=== PATIENT | male | born 1950 | race Caucasian/White ===

== ENCOUNTER 2018-04-05 10:37 | Emergency (ER) | payer OTHER, MEDICARE, SELFPAY ==
[2018-04-05 10:44] VITALS: BP 140/90; PULSE 85; RESP 16; TEMP 36.4; O2SAT 95
--- NOTE | 2018-04-05 11:05 | ED.GENADUL ---
Disposition Clinical Impression: Knee pain, right Disposition: HOME Condition: Stable Instructions: Knee Pain (ED) Additional Instructions: Rest, ice, elevate right knee as much as possible. Wear your Ja wrap as much as possible. You should receive a call from care management regarding follow-up with occupational medicine and/or orthopedics regarding when to return to work with modified duty. Return to the emergency department any worsening or new concerning symptoms. Forms: Work Release Medical Decision Making - Radiology Data Radiology results: report reviewed, image reviewed Right knee x-ray: 1. Soft round ossific fragment adjacent to the intercondylar eminence may represent old avulsion fracture of unknown age. 2. No significant suprapatellar joint effusion. 3. Patellar ligament is thickened. This may indicate injury. - Medical Decision Making 68-year-old male who presents with right medial knee pain for the past 6 days. Patient walks frequently here at work for his job. States a few days ago he was walking and turned to the right and twisted his right medial knee. No obvious ligamentous instability or evidence of trauma to right knee. Neurovascularly intact. Patient declines pain medication. We will send for a right knee x-ray. 1400 --right knee x-ray notes a small ossific fragment which may represent an avulsion fracture of unknown age. His findings are discussed with orthopedics Dr. Turk and notified that patient is able to fully extend his leg and there is no effusion. Recommends rest, ice, elevate and Ja wrap. No indication for knee immobilizer. Recommend patient follow-up with orthopedics as needed if pain persists. Patient states he cannot ambulate on his right leg due to his knee pain. He states he walks up to 5 miles while at work and his next day of work is tomorrow. We will send home with a work note to return in 2 days. Patient states he still will not be able to ambulate at that time and they will not give him any other modified duty. Will give a work note to return with modified light duty Friday. Will place patient on care management list to arrange for follow-up with occupational medicine and/or orthopedics for reevaluation to assess when patient can return to work. History of Present Illness - General Chief complaint: Orthopedic Stated complaint: RT KNEE PAIN Time Seen by Provider: 04/05/18 10:52 Source: patient Mode of arrival: ambulatory Limitations: no limitations - History of Present Illness Initial comments: Patient is a 68-year-old male presents with right knee pain for the past several days. 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 Patient states he was walking the other day and he turned the corner and thinks he may have twisted his right knee. Patient is complaining of pain in the right medial knee. Patient is able to ambulate but with pain. She denies fall onto knee. - Related Data Calcium Citrate/Vitamin D3 [Calcium Citrate - Vit D Tablet] 600 each PO BID 12/20/13 Multivitamin [Children's Chewable Vitamin] 1 each PO BID 12/20/13 Nitroglycerin [Nitrostat] 1 tab SL PRN #2 bottle 09/17/16 Aspirin [Aspir 81] 81 mg PO DAILY tab-cap 09/23/17 Candesartan [Atacand] 32 mg PO DAILY #90 tab-cap 09/23/17 Celecoxib 200 mg PO DAILY PRN #90 tab-cap 09/23/17 Chlorphen/Phenyleph/Dm/Aspirin [Vivian-Donna Plus C-C Tab Eff] 1 each PO Q6H PRN PRN 09/23/17 Cholecalciferol (Vitamin D3) [Vitamin D3] 3,000 unit PO DAILY 09/23/17 Furosemide [Lasix] 20 mg PO DAILY #90 tab-cap 09/23/17 Insulin Glargine [Lantus Solostar] 70 unit SQ QPM #90 pen 09/23/17 Ketoconazole 1 applic TP Q72H #2 bottle 09/23/17 Levothyroxine [Levothroid] 2 tab PO DAILY #180 tab-cap 09/23/17 [place]-3 Acid Ethyl Esters [Lovaza] 1 cap PO DAILY #90 tab-cap 09/23/17 Omeprazole 20 mg PO DAILY #90 tab-cap 09/23/17 Tadalafil [Cialis] 20 mg PO daily prn #30 tab 09/23/17 Blood Sugar Diagnostic, Drum [Accu-Chek Compact Plus Strips] 1 each MC QID #300 strip 01/13/18 Lancets [Accu-Chek Fastclix] 1 each MC QID #300 each 01/13/18 Glimepiride 4 mg PO DAILY #90 tab-cap 03/17/18 Metformin HCl [Glucophage Xr] 2 tab PO BID #360 tab 03/17/18 Dapagliflozin Propanediol [Farxiga] 10 mg PO DAILY #30 tab-cap 03/25/18 Testosterone [Androgel] 60.75 mg TD DAILY #2 bottle 03/25/18 Varicella-Zoster Ge/As01b/Pf [Shingrix Vial Kit] 50 mcg IM ONCE #1 kit 03/25/18 Allergies Allergy/AdvReac Type Severity Reaction Status Date / Time Pcnvfmo-Ori-Eer Reductase Allergy Severe Swelling/Ed Unverified 04/05/18 10:48 Inhibitor alton ciprofloxacin [From Cipro] AdvReac Unknown NUMBNESS; Unverified 04/05/18 10:48 TINGLING exenatide AdvReac Unknown Unverified 04/05/18 10:48 Review of Systems Constitutional: denies: chills, fever Eyes: denies: eye pain ENT: denies: ear pain, dental pain Respiratory: denies: cough, shortness of breath Cardiovascular: denies: chest pain, dyspnea on exertion Gastrointestinal: denies: abdominal pain, nausea, vomiting Genitourinary: denies: urgency, dysuria, frequency Musculoskeletal: other (R knee pain). denies: back pain Skin: denies: rash, lesions Past Medical History - Past Medical History Medical history: CAD, diabetes, hyperlipidemia, hypertension BPH, Obesity, Peripheral vascular disease Surgical history: angioplasty/stent, vascetomy, other (Gastric bypass, Vasectomy, Thyroidectomy, Shoulder surgery) Psychiatric history: anxiety - Social History Smoking status: never smoker Alcohol use: none Drug use: none General Exam - General Limitations: no limitations General appearance: alert, in no apparent distress - Eye Eye exam: Present: EOMI - Respiratory Respiratory exam: Absent: respiratory distress - Cardiovascular Cardiovascular Exam: Present: regular rate - Extremities Exam Extremities exam: Present: other (Pain in right medial knee with range of motion. No tenderness palpation of right knee, no edema, erythema, ecchymosis, induration or fluctuance or abrasion or laceration. No pain with valgus or varus stress. Negative anterior posterior drawer. Right DP/PT pulse intact.) - Neurological Exam Neurological exam: Present: alert, oriented X3 - Psychiatric Psychiatric exam: Present: normal affect - Skin Skin exam: Present: warm, dry, intact Course Vital Signs - 24 hr 04/05/18 10:44 Temperature 97.5 F L Pulse 85 Respiratory 16 Rate Blood Pressure 140/90 Pulse Oximetry 95
--- NOTE | 2018-04-05 11:06 | DI.REPORT_ITS ---
SYMPTOM/DIAGNOSIS: S/P TWISTING INJURY WHILE WALKING, PKAIN MEDIAL KNEE, R/O EFFUSION, FX RIGHT KNEE: There are no prior comparison exams. The lateral view is suboptimally positioned. There is mild periarticular spurring. There is an osteophyte vs old avulsion fracture at the lateral tibial plateau. There is some irregularity at the articular aspect of the patella presumably degenerative change. IMPRESSION: Somewhat limited exam. No acute abnormality.
--- NOTE | 2018-04-05 13:34 | DI.VRAD_ITS ---
EXAM: XR Right Knee, 3 Views EXAM DATE/TIME: 04/05/2018 11:07 AM CLINICAL HISTORY: 68 years old, male; Pain; Knee; Right; Patient HX: S/P twisting injury while walking, pain medial knee; Additional info: R/O effusion/fx TECHNIQUE: XR Right knee 3 views. COMPARISON: No relevant prior studies available. FINDINGS: Bones/joints: Mild osteophyte formation in all 3 compartments of the knee. Small round ossific fragment adjacent to the intercondylar eminence may represent avulsion fracture of unknown age. No significant suprapatellar joint effusion. The patellar ligament is thickened. This may indicate injury. Soft tissues: Normal. IMPRESSION: 1. Small round ossific fragment adjacent to the intercondylar eminence may represent avulsion fracture of unknown age. 2. No significant suprapatellar joint effusion. 3. The patellar ligament is thickened. This may indicate injury. Dictated and Authenticated by: Edward Beard MD. Ordering:ALFREDO CHRISTINE MD
[2018-04-05 14:42] VITALS: BP 142/90; PULSE 73; RESP 18; TEMP 36.1; O2SAT 93
--- NOTE | 2018-04-06 08:26 | PDOC.ERCMPRO ---
Care Management Progress Note 04/06-Dr. Leonard requested assistance with an occ med f/u in two days for avulsion fracture, unknown age. Called [facility] and they scheduled appt for , 04/09 at 230. Called Aric and he states he can make that appt. Notified Bee in access that patient's home phone number is not a good number and needs to be removed from chart for which she did.
== END 2018-04-05 14:40 | disposition home or self-care (01) ==
PROVIDERS: Emergency Provider Physician Assistant; PCP Internal Medicine
DX: M25.561 Pain in right knee (principal); X50.9XXA Other and unspecified overexertion or strenuous movements or postures, initial encounter; E11.9 Type 2 diabetes mellitus without complications; Z79.4 Long term (current) use of insulin; I10 Essential (primary) hypertension
CPT/HCPCS: 73562; 99283

== ENCOUNTER → 2018-04-09 14:40 | Outpatient (REF) | payer SELFPAY | LOC: OM 14:40 | PROVIDERS: PCP Internal Medicine; Visit Provider Nurse Practitioner Family | DX: Z02.79 Encounter for issue of other medical certificate (principal) ==

== ENCOUNTER → 2018-04-16 09:45 | Outpatient (CLI) | payer OTHER, MEDICARE, SELFPAY | PROVIDERS: PCP Internal Medicine; Visit Provider Orthopaedic Surgery | DX: M25.561 Pain in right knee (principal); M23.8X1 Other internal derangements of right knee; I10 Essential (primary) hypertension; E11.9 Type 2 diabetes mellitus without complications; Z79.84 Long term (current) use of oral hypoglycemic drugs | CPT/HCPCS: 20610; 99214; J1040 ==

== ENCOUNTER → 2018-04-16 12:20 | Outpatient (REF) | payer OTHER, MEDICARE, SELFPAY ==
[2018-04-16 13:09] LABS: Source R KNEE
[2018-04-16 14:04] LABS: Clarity CLEAR
[2018-04-16 14:12] LABS: Nucleated Cells 1300 /MM3 (0-0); Polynuclear Cells 12 % (0-0)
[2018-04-16 14:13] LABS: Mononuclear Cells 88 % (0-0)
== END ==
LOC: LBN 12:20
PROVIDERS: PCP Internal Medicine; Visit Provider Orthopaedic Surgery
DX: M25.461 Effusion, right knee (principal)
CPT/HCPCS: 89051; 89060

== ENCOUNTER → 2018-04-22 09:45 | Outpatient (CLI) | payer OTHER, MEDICARE, SELFPAY | PROVIDERS: PCP Internal Medicine; Visit Provider Orthopaedic Surgery | DX: M75.81 Other shoulder lesions, right shoulder (principal); M25.561 Pain in right knee; M23.91 Unspecified internal derangement of right knee | CPT/HCPCS: 20610; 99213; J1040 ==

== ENCOUNTER 2018-08-14 10:52 | Outpatient (CLI) | payer OTHER, MEDICARE, SELFPAY ==
[2018-08-14 11:38] LABS: HCT 54.5 % (40.0-50.0); HGB 17.9 g/dL (13.5-17.5); Mean Corp. HGB Concentration 32.8 g/dL (32.0-36.0); Mean Corpuscular Hemoglobin 31.1 pg (27.0-33.0); Mean Corpuscular Volume 94.8 fL (80-95); Mean Platelet Volume 10.6 fL (8.0-11.0); Platelet Count 176 x1000/uL (130-400); RBC 5.75 m/cumm (4.50-6.00); RBC Distribution Width 13.8 % (11.8-14.1); White Blood Cell Count 6.53 k/cumm (4.4-10.8)
[2018-08-14 12:06] LABS: COMMENT (LAB VIEW ONLY) 105.56 mg/dL
[2018-08-14 12:40] LABS: Iron 59 ug/dL (50-175); Total Iron Binding Capacity 281 ug/dL (250-450); Transferrin Sat 21 % (20-55)
[2018-08-14 13:08] LABS: Anion Gap 8.2 mmol/L (3-11); BUN 22 mg/dL (7-18); CO2 29.8 mmol/L (21.0-32.0); CREATININE 1.09 mg/dL (0.70-1.30); Calcium 9.4 mg/dL (8.5-10.1); Chloride 104 mmol/L (98-107); Cholesterol 183 mg/dL (50-200); Ferritin 49 ng/mL (8-388); Glucose 156 mg/dL (70-100); HDL Cholesterol 37 mg/dL (40-60); LDL CHOLESTEROL 122 mg/dL (<100); Potassium 4.9 mmol/L (3.5-5.1); Sodium 142 mmol/L (136-145); TSH 4.64 uIU/mL (0.358-3.74); Triglyceride 204 mg/dL (30-150); Vitamin B12 468 pg/mL (193-986)
[2018-08-17 06:22] LABS: Vitamin D 25 Total 62.6 ng/ml (30-100)
[2018-08-17 11:03] LABS: Transferrin 240 mg/dL (201-352)
== END 2018-08-14 11:12 ==
PROVIDERS: PCP Internal Medicine; Visit Provider Psychiatry & Neurology Neurology
DX: R73.01 Impaired fasting glucose (principal); E55.9 Vitamin D deficiency, unspecified; E11.49 Type 2 diabetes mellitus with other diabetic neurological complication; E11.29 Type 2 diabetes mellitus with other diabetic kidney complication; R80.9 Proteinuria, unspecified; E03.9 Hypothyroidism, unspecified; E23.0 Hypopituitarism; I10 Essential (primary) hypertension; I25.10 Atherosclerotic heart disease of native coronary artery without angina pectoris; Z98.84 Bariatric surgery status
CPT/HCPCS: 36415; 80048; 80061; 82306; 83721; 85027; 82043; 82570; 82607; 82728; 83540; 83550; 84443; 84466

== ENCOUNTER 2018-10-27 11:26 | Outpatient (CLI) | payer MEDICARE, OTHER, SELFPAY ==
[2018-10-27 12:16] LABS: HGB 18.3 g/dL (13.5-17.5); Mean Corp. HGB Concentration 33.3 g/dL (32.0-36.0); Mean Corpuscular Hemoglobin 30.8 pg (27.0-33.0); Mean Corpuscular Volume 92.4 fL (80-95); Mean Platelet Volume 10.9 fL (8.0-11.0); Platelet Count 184 x1000/uL (130-400); RBC 5.95 m/cumm (4.50-6.00); RBC Distribution Width 13.8 % (11.8-14.1); White Blood Cell Count 6.97 k/cumm (4.4-10.8)
== END 2018-10-27 11:46 ==
PROVIDERS: PCP Internal Medicine; Visit Provider Internal Medicine
DX: D58.2 Other hemoglobinopathies (principal)
CPT/HCPCS: 85027

== ENCOUNTER 2018-11-06 11:07 | Outpatient (CLI) | payer MEDICARE, OTHER, SELFPAY ==
[2018-11-10 12:38] LABS: Testosterone, Total 334 ng/dL (240-950)
== END 2018-11-06 11:27 ==
PROVIDERS: PCP Internal Medicine; Visit Provider Internal Medicine
DX: E29.1 Testicular hypofunction (principal)
CPT/HCPCS: 84403

== ENCOUNTER 2019-10-27 11:25 | Outpatient (CLI) | payer MEDICARE, OTHER, SELFPAY ==
[2019-10-27 11:49] LABS: HCT 46.3 % (40.0-50.0); HGB 15.8 g/dL (13.5-17.5); Mean Corp. HGB Concentration 34.1 g/dL (32.0-36.0); Mean Corpuscular Hemoglobin 31.6 pg (27.0-33.0); Mean Corpuscular Volume 92.6 fL (80-95); Mean Platelet Volume 10.3 fL (8.0-11.0); Platelet Count 221 x1000/uL (130-400); White Blood Cell Count 6.73 k/cumm (4.4-10.8)
[2019-10-27 12:47] LABS: Iron 102 ug/dL (65-175); Total Iron Binding Capacity 262 ug/dL (250-450); Transferrin Sat 39 % (20-55)
[2019-10-27 13:12] LABS: Anion Gap 8.6 mmol/L (3-11); BUN 12 mg/dL (7-18); CO2 27.4 mmol/L (21.0-32.0); CREATININE 0.84 mg/dL (0.70-1.30); Calcium 8.4 mg/dL (8.5-10.1); Calculated LDL 96 mg/dL (<100); Chloride 106 mmol/L (98-107); Cholesterol 164 mg/dL (<200); Ferritin 118 ng/mL (26-388); Glucose 107 mg/dL (74-106); HDL Cholesterol 47 mg/dL (40-60); Potassium 4.8 mmol/L (3.5-5.1); Sodium 142 mmol/L (136-145); TSH (W/Ref FT4) 1.14 uIU/mL (0.36-3.74); Triglyceride 105 mg/dL (<150); Vitamin B12 464 pg/mL (193-986)
[2019-10-28 05:28] LABS: Vitamin D 25 Total 53.8 ng/ml (30-100)
[2019-10-28 10:07] LABS: Transferrin 184 mg/dL (201-352)
[2019-10-30 08:20] LABS: Testosterone, Total 238 ng/dL (240-950)
== END 2019-10-27 11:45 ==
PROVIDERS: PCP Internal Medicine; Visit Provider Internal Medicine
DX: E11.49 Type 2 diabetes mellitus with other diabetic neurological complication (principal); I10 Essential (primary) hypertension; E78.00 Pure hypercholesterolemia, unspecified; I25.10 Atherosclerotic heart disease of native coronary artery without angina pectoris; E25.0 Congenital adrenogenital disorders associated with enzyme deficiency; E55.9 Vitamin D deficiency, unspecified; Z98.84 Bariatric surgery status
CPT/HCPCS: 36415; 80048; 80061; 82306; 84403; 85027; 82607; 82728; 83540; 83550; 84443; 84466

== ENCOUNTER 2020-11-06 03:16 | Outpatient (CLI) | payer MEDICARE, OTHER, SELFPAY ==
[2020-11-06 08:04] LABS: HCT 46.6 % (40.0-50.0); HGB 15.8 g/dL (13.5-17.5); MCH 31.5 pg (27.0-33.0); MCHC 33.9 % (32.0-36.0); MPV 11.2 fL (8.0-11.0); Platelet Count 201 10^3/uL (130-400); RBC 5.01 10^6/uL (4.36-5.78); RDW 12.4 % (11.8-14.1); RDW-SD 42.4 fL; WBC 6.43 10^3/uL (4.4-10.8)
[2020-11-06 09:39] LABS: COMMENT (LAB VIEW ONLY) 204.67 mg/dL
[2020-11-06 09:40] LABS: Microalb ug/mg Crea 105.7 ug/mg Cr
[2020-11-06 09:51] LABS: Vitamin D 25 Total 39.3 ng/ml (30-100)
[2020-11-06 09:53] LABS: ALT 49 U/L (16-63); AST 21 U/L (15-37); Albumin 3.8 g/dL (3.4-5.0); Alkaline Phosphatase 78 U/L (46-116); Anion Gap 9.4 mmol/L (3-11); BUN 13 mg/dL (7-18); Bilirubin, Total 0.6 mg/dL (0.2-1.0); CO2 28.6 mmol/L (21.0-32.0); CREATININE 0.9 mg/dL (0.70-1.30); Calcium 9.3 mg/dL (8.5-10.1); Chloride 103 mmol/L (98-107); Glucose 248 mg/dL (74-106); Potassium 4.4 mmol/L (3.5-5.1); Sodium 141 mmol/L (136-145); TSH (W/Ref FT4) 2.18 uIU/mL (0.36-3.74); Total Protein 7.2 g/dL (6.4-8.2); Vitamin B12 520 pg/mL (193-986)
[2020-11-08 17:41] LABS: Testosterone, Total 281 ng/dL (240-950)
== END 2020-11-06 03:17 | disposition home or self-care (01) ==
LOC: LBO 03:17
PROVIDERS: PCP Internal Medicine; Visit Provider Internal Medicine
DX: D75.1 Secondary polycythemia (principal); E03.9 Hypothyroidism, unspecified; E11.29 Type 2 diabetes mellitus with other diabetic kidney complication; R80.9 Proteinuria, unspecified; E55.9 Vitamin D deficiency, unspecified; I10 Essential (primary) hypertension; I25.10 Atherosclerotic heart disease of native coronary artery without angina pectoris; Z98.84 Bariatric surgery status
CPT/HCPCS: 36415; 80053; 82306; 84403; 85027; 82043; 82570; 82607; 84443

== ENCOUNTER 2021-08-03 01:23 | Outpatient (CLI) | payer MEDICARE, OTHER, SELFPAY ==
[2021-08-03 09:35] LABS: HCT 45.6 % (40.0-50.0); HGB 14.8 g/dL (13.5-17.5); MCHC 32.5 % (32.0-36.0); MCV 95.4 fL (80-95); MPV 10.5 fL (8.0-11.0); Platelet Count 205 10^3/uL (130-400); RBC 4.78 10^6/uL (4.36-5.78); RDW 12.4 % (11.8-14.1); RDW-SD 44.1 fL; WBC 5.96 10^3/uL (4.4-10.8)
[2021-08-03 10:24] LABS: COMMENT (LAB VIEW ONLY) 306.36 mg/dL
[2021-08-03 10:25] LABS: Microalb ug/mg Crea 75.2 ug/mg Cr
[2021-08-03 11:18] LABS: ALT 39 U/L (16-63); AST 19 U/L (15-37); Albumin 3.6 g/dL (3.4-5.0); Alkaline Phosphatase 70 U/L (46-116); Anion Gap 7.7 mmol/L (3-11); BUN 13 mg/dL (7-18); Bilirubin, Total 0.6 mg/dL (0.2-1.0); CO2 30.3 mmol/L (21.0-32.0); Calcium 8.9 mg/dL (8.5-10.1); Calculated LDL 127 mg/dL (<100); Chloride 103 mmol/L (98-107); Cholesterol 203 mg/dL (<200); Glucose 199 mg/dL (74-106); HDL Cholesterol 40 mg/dL (40-60); Potassium 4.5 mmol/L (3.5-5.1); Sodium 141 mmol/L (136-145); TSH (W/Ref FT4) 6.78 uIU/mL (0.36-3.74); Total Protein 6.9 g/dL (6.4-8.2); Triglyceride 182 mg/dL (<150); Vitamin B12 322 pg/mL (193-986)
[2021-08-03 16:18] LABS: FREE T4 1.06 ng/dL (0.76-1.46)
[2021-08-12 09:26] LABS: Testosterone, Total 277 ng/dL (240-950)
== END 2021-08-03 01:24 | disposition home or self-care (01) ==
LOC: LBO 01:23
PROVIDERS: PCP Internal Medicine; Visit Provider Internal Medicine
DX: D75.1 Secondary polycythemia (principal); E11.29 Type 2 diabetes mellitus with other diabetic kidney complication; E11.49 Type 2 diabetes mellitus with other diabetic neurological complication; E23.0 Hypopituitarism; E55.9 Vitamin D deficiency, unspecified; I10 Essential (primary) hypertension; I25.10 Atherosclerotic heart disease of native coronary artery without angina pectoris; R80.9 Proteinuria, unspecified; Z98.84 Bariatric surgery status; E78.00 Pure hypercholesterolemia, unspecified; E03.9 Hypothyroidism, unspecified; J45.909 Unspecified asthma, uncomplicated
CPT/HCPCS: 36415; 80053; 80061; 82306; 84403; 85027; 82043; 82570; 82607; 84439; 84443

== ENCOUNTER 2022-02-01 09:47 | Emergency (ER) | payer MEDICARE, OTHER, SELFPAY ==
[2022-02-01 09:58] VITALS: BP 138/70; PULSE 102; RESP 18; TEMP 36.5; O2SAT 94
--- NOTE | 2022-02-01 10:22 | W.ED.GENAD ---
Discharge Plan Disposition Patient Disposition: HOME Condition: Improving Discharge Details Clinical Impression: Septic bursitis Primary Care Provider: Leyda Carvajal ED Provider: Reginald Diaz Home Meds and New Rx's Prescriptions: New clindamycin HCl 300 mg capsule 300 mg PO Q6H 10 Days Qty: 40 0RF Adult 50 Plus Probiotic 4 billion cell capsule 4,000 mmu cells PO DAILY Qty: 10 0RF Rx Instructions: administer with a meal No Action tadalafil [Cialis] 20 mg tablet 20 mg PO DAILY PRN (Reason: erectile dysfunction) Qty: 30 5RF Rx Instructions: administer approximately 30min before sexual activity; do not use more than 1 dose per 24hrs sitagliptin 25 mg tablet 25 mg PO DAILY Qty: 90 0RF Label Comments: Pt stopped,bothered him,unsure if Dr. Carvajal aware yet 02/01/22 (DME) lancets [Accu-Chek Fastclix Lancet Drum] Misc See Rx Instructions .ROUTE .MEDSUPPLY Qty: 100 4RF Rx Instructions: Dx E11.9, goal A1c < 8. (DME) Accu-Chek Guide test strips Strip See Rx Instructions .ROUTE .MEDSUPPLY Qty: 200 3RF Rx Instructions: Dx E11.9, goal A1c < 8 test BID Vivian-Linden Plus C/C(PE,DM) 1 EACH tablet, effervescent 1 ea PO Q6H PRN PRN Rx Instructions: uses more often in winter for sx of cold/flu ketoconazole 120 ML shampoo 1 applic Topical Q72H Qty: 2 3RF Label Comments: Pt uses 1-2 times a week 02/01/22 celecoxib 200 mg capsule 200 mg PO DAILY PRN (Reason: pain) Qty: 90 3RF Label Comments: Pt takes 2-3 times a week 02/01/22 furosemide [Lasix] 20 mg tablet 20 mg PO DAILY Qty: 90 3RF Hold Instructions: Home Medication placed on hold at Doctor's office Label Comments: Pt states doesn't take 02/01/22 (DME) lancets Misc 1 ea Miscellaneous QID Qty: 300 1RF Rx Instructions: Test TID. Dx E11.49, goal HGB AIC LESS THAN 7 nitroglycerin [Nitrostat] 0.4 mg tablet, sublingual 0.4 mg Sublingual PRN Qty: 30 1RF Rx Instructions: Dispense one small bottle omeprazole 20 mg capsule,delayed release(DR/EC) 20 mg PO DAILY Qty: 90 3RF Label Comments: Pt has but isn't taking 02/01/22 (DME) pen needle, diabetic [BD Ultra-Fine Short Pen Needle] 31 gauge x 5/16 needle See Rx Instructions .ROUTE .MEDSUPPLY Qty: 200 3RF Rx Instructions: For E11.9 to maintain A1C< 7, BID injections Children's Chewable Vitamin 1 EACH tablet,chewable 2 ea PO BID calcium citrate-vitamin D3 1 EACH tablet 600 ea PO BID aspirin 81 mg Tablet,Delayed Release (Dr/Ec) 81 mg PO QPM melatonin 10 mg Tablet 10 mg PO HS Rx Instructions: Take when going to bed to add to previous 10mg dose for total of 20mg. melatonin 10 mg Tablet 10 mg PO QPM Rx Instructions: Take at 7pm, followed by second 10mg dose at bedtime for a total of 20mg glimepiride 4 mg tablet 4 mg PO BID levothyroxine 112 mcg tablet 224 mcg PO DAILY Rx Instructions: 2 PO DAILY; total 224 mcg daily olmesartan [Benicar] 40 mg tablet 40 mg PO QPM insulin glargine [Lantus Solostar U-100 Insulin] 100 unit/mL (3 mL) insulin pen 80 unit subcut QPM Rx Instructions: 80 units qpm based on blood sugar Discharge Instructions Instructions: Elbow Bursitis (ED) Additional Instructions: Please follow-up with Dr. Sandoval as scheduled. Please return to the emergency department if you develop worsening pain swelling redness fevers chills or other abnormal symptoms. Please take your medications as prescribed. Medical Decision Making 71-year-old male history of diabetes presents with weeks of right elbow pain redness swelling warmth worsening over the past several days, denies fevers or chills, is mildly tachycardic on arrival, full range of motion of affected elbow, palpable fluid collection at olecranon bursa, no crepitus deformity full of vesicles or signs of trauma, neurovascularly intact, concern for septic bursitis versus gouty bursitis versus Lyme bursitis versus less likely septic joint given range of motion intact chronicity of symptoms and lack of systemic signs of illness, will perform bedside tap of bursa, will send fluid for analysis, will obtain blood cultures basic labs inflammatory markers, after tap will cover empirically with clindamycin. Will have patient follow-up as scheduled with orthopedic team. 15: 32 aspiration of bursal sac for therapeutic and diagnostic results performed, evidence of over 20,000 WBCs with a predominance of polymorphonucleocytes, also gram-positive cocci consistent with septic bursitis. Patient is full range of motion of elbow low suspicion for concomitant septic joint. Have started patient on clindamycin. Discussed case with orthopedic surgeon Dr. Sandoval who recommends adding IM ceftriaxone and will follow up with patient as an outpatient for repeat examination and further treatment as needed. Patient be discharged home on p.o. clindamycin. Patient given home care instructions and strict return precautions. HPI General Date/Time Provider Initiated Documentation: 02/01/22 10:05. HPI Narrative: 71-year-old male history of diabetes, presents with several weeks of right elbow swelling pain and redness, worsening pain and warmth over the past several days. Endorses that he has an appointment with orthopedic service to have it drained, attempted to have it drained as an outpatient at outside clinic however no one would drain it for him. Related Data Home Medications Medication Instructions Recorded Confirmed calcium citrate 315 mg-vitamin D3 600 ea PO BID 12/20/13 02/01/22 5 mcg (200 unit) tablet pediatric multivitamin (Children's 2 ea PO BID 12/20/13 02/01/22 Chewable Vitamin) [id number] 1 ea PO Q6H PRN PRN 09/23/17 02/01/22 2 mg-7.8 mg-10 mg-325 mg effervs tab (Vivian-Linden Plus C/C(PE,DM)) ketoconazole 2 % shampoo 1 applic topical Q72H ##2 09/23/17 02/01/22 blood sugar diagnostic (Accu-Chek #200 units 08/14/21 02/01/22 Guide test strips) lancets (Accu-Chek Fastclix Lancet #100 ea 08/14/21 02/01/22 Drum) celecoxib 200 mg capsule 200 mg PO DAILY PRN pain #90 10/31/21 02/01/22 tab-caps furosemide 20 mg tablet (Lasix) 20 mg PO DAILY #90 tab-caps 10/31/21 11/14/21 lancets #300 ea 10/31/21 02/01/22 nitroglycerin 0.4 mg sublingual 0.4 mg sublingual PRN ASCVD #30 10/31/21 02/01/22 tablet (Nitrostat) tabs omeprazole 20 mg capsule,delayed 20 mg PO DAILY #90 tab-caps 10/31/21 11/14/21 release pen needle, diabetic 31 gauge x #200 ea 10/31/21 02/01/22 5/16 (BD Ultra-Fine Short Pen Needle) sitagliptin 25 mg tablet 25 mg PO DAILY #90 tabs 11/14/21 11/14/21 tadalafil 20 mg tablet (Cialis) 20 mg PO DAILY PRN erectile 11/14/21 02/01/22 dysfunction #30 tabs aspirin 81 mg tablet,delayed 81 mg PO QPM 02/01/22 02/01/22 release clindamycin HCl 300 mg capsule 300 mg PO Q6H 10 days #40 caps 02/01/22 glimepiride 4 mg tablet 4 mg PO BID 02/01/22 02/01/22 insulin glargine 100 unit/mL (3 80 unit subcut QPM 02/01/22 02/01/22 mL) subcutaneous pen (Lantus Solostar U-100 Insulin) lactobacillus combination no.9 4 4,000 mmu cells PO DAILY #10 caps 02/01/22 billion cell capsule (Adult 50 Plus Probiotic) levothyroxine 112 mcg tablet 224 mcg PO DAILY 02/01/22 02/01/22 melatonin 10 mg tablet 10 mg PO HS 02/01/22 02/01/22 melatonin 10 mg tablet 10 mg PO QPM 02/01/22 02/01/22 olmesartan 40 mg tablet (Benicar) 40 mg PO QPM 02/01/22 02/01/22 Previous Rx's Medication Instructions Recorded ketoconazole 2 % shampoo 1 applic topical Q72H ##2 09/23/17 blood sugar diagnostic (Accu-Chek #200 units 08/14/21 Guide test strips) lancets (Accu-Chek Fastclix Lancet #100 ea 08/14/21 Drum) celecoxib 200 mg capsule 200 mg PO DAILY PRN pain #90 10/31/21 tab-caps furosemide 20 mg tablet (Lasix) 20 mg PO DAILY #90 tab-caps 10/31/21 lancets #300 ea 10/31/21 nitroglycerin 0.4 mg sublingual 0.4 mg sublingual PRN ASCVD #30 10/31/21 tablet (Nitrostat) tabs omeprazole 20 mg capsule,delayed 20 mg PO DAILY #90 tab-caps 10/31/21 release pen needle, diabetic 31 gauge x #200 ea 10/31/2101/07 (BD Ultra-Fine Short Pen Needle) sitagliptin 25 mg tablet 25 mg PO DAILY #90 tabs 11/14/21 tadalafil 20 mg tablet (Cialis) 20 mg PO DAILY PRN erectile 11/14/21 dysfunction #30 tabs clindamycin HCl 300 mg capsule 300 mg PO Q6H 10 days #40 caps 02/01/22 lactobacillus combination no.9 4 4,000 mmu cells PO DAILY #10 caps 02/01/22 billion cell capsule (Adult 50 Plus Probiotic) Allergies Allergy/AdvReac Type Severity Reaction Status Date / Time Urkkvzu-ZNO-EaH Reductase Allergy Severe Swelling/Ed Verified 01/29/22 11:27 Inhibitor alton [Livsdfn-Gtt-Mat Reductase Inhibitor] ciprofloxacin [From Cipro] AdvReac Unknown NUMBNESS; Verified 01/29/22 11:27 TINGLING exenatide AdvReac Unknown unknown Verified 01/29/22 11:27 General Stated Complaint: Cellulitis VIKY: 3 Review of Systems Narrative: Review of Systems Constitutional: negative Eyes: negative ENT: negative Cardiovascular: negative Respiratory: negative Gastrointestinal: negative : negative Musculoskeletal: Elbow pain Skin: Elbow redness and swelling Neurologic: negative Psych: negative PFSH All Active Problems (Updated 02/01/22 @ 15:56 by Reginald Diaz MD) Septic bursitis (Acute) Erectile dysfunction (Acute) BPH without obstruction/lower urinary tract symptoms (Acute) Carpal tunnel syndrome (Acute) Chronic obstructive lung disease (Acute) Peripheral venous insufficiency (Acute) Shoulder pain (Acute) Erythrocytosis (Acute) Hypogonadotropic hypogonadism (Acute) Sensorineural hearing loss of both ears (Chronic) Vitamin D deficiency (Acute 09/12/15) Unspecified sleep apnea (Acute) 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) Tubular adenoma of colon (Acute 06/17/16) Primary fibromyalgia syndrome (Acute) Obesity (Acute) Microalbuminuria due to type 2 diabetes mellitus (Acute 09/19/16) Hypothyroidism (Acute 01/31/14) Essential hypertension (Acute 09/14/13) Bariatric surgery status (Acute 08/13/13) Atherosclerosis of [place] coronary artery of [place] heart without angina pectoris (Acute) Asthma (Acute) Anxiety (Acute) Medical History Anxiety Asthma Atherosclerosis of [place] coronary artery of [place] heart without angina pectoris Diabetes mellitus type II, controlled History of bariatric surgery HTN (hypertension) Surgical History BARIATRIC SURGERY (~2013) Colonoscopy - IV Sedation (06/17/16) Rotator Cuff Repair B/L Stent placement (~2002) 1 vascular stent RCA thyroidectomy (05/07/13) Vasectomy Family History Mother No problems noted. Father Heart disease tobacco use Sister No problems noted. Sister No problems noted. Sister No problems noted. Social History Smoking/Tobacco Use Status: Never Smoking risk assessment performed?: Yes Alcohol Intake: never Drug use: Never Substance use type: does not use Household members: spouse Housing: house Number of Children: 1 number of grandchildren: 2 Communication Needs: Hard of Hearing current occupation: retired from [employer] Current gender identity: male What is your relationship status?: Panel score (0-1 are the most socially isolated patients): 1 What type of physical activity do you participate in: walking Seatbelt use: always Drive intox or ride w/intox electric pile driver operator: No Water heater temp set <120 deg: Yes Carbon monox detector in home: Yes Do you feel safe at home: Yes Do you feel safe in your relationship?: Yes Exam Narrative Exam Narrative: Physical Examination General: alert, awake, cooperative, resting comfortably, no acute distress HEENT: normocephalic, atraumatic; PERRL, EOM intact, conjunctiva normal; no nasal discharge; moist mucous membranes, oral and pharyngeal mucosa normal, tolerating secretions Neck: supple, trachea midline; full ROM Chest: normal to inspection Respiratory: normal respiratory effort, speaking in full sentences, clear to auscultation, no wheezing, rales or rhonchi Cardiac: Tachycardia, regular rhythm, S1S2 intact, no murmurs rubs or gallops GI: abdomen soft, non-tender, non-distended; no palpable mass or hepatosplenomegaly Skin: no lesions, rashes or trauma appreciated Neuro: AAOx3, normal speech, moving all extremities Extremities: Right upper extremity: Full range of motion shoulder elbow wrist hand, does have palpable fluid collection at olecranon bursa, localized warmth and erythema to region of elbow, no crepitus or deformity, no bulla or vesicles, soft compartments Psych: Appropriate mood and affect Course Vital Signs Vital signs: Vital Signs Temperature 36.5 C 02/01/22 09:58 Pulse 102 H 02/01/22 09:58 Respiratory Rate 18 02/01/22 09:58 Blood Pressure 138/70 02/01/22 09:58 Pulse Oximetry 94 02/01/22 09:58 Temperature 36.5 C 02/01/22 09:58 Temperature Source Temporal Artery Scan 02/01/22 09:58 Pulse 102 H 02/01/22 09:58 Respiratory Rate 18 02/01/22 09:58 Blood Pressure 138/70 02/01/22 09:58 Blood Pressure Position Sitting 02/01/22 09:58 Pulse Oximetry 94 02/01/22 09:58 Oxygen Delivery Method Room Air 02/01/22 09:58 Oxygen Flow Rate 0 02/01/22 09:58 Lab/Test Results Lab/Test Results: 02/01/22 10:13 Blood Blood Culture - Pending 02/01/22 10:13 Blood Blood Culture - Pending Procedures Bursa Procedures Time Out Performed: Yes Side of body: left Site of Procedure: olecranon bursa XRAY Obtained: none Antisepsis Used: Povidone-Iodine1% Local Anesthetic: Lidocaine 1% Amount of anesthesia used (mL): 5 Fluid obtained (mL): 10 Fluid Type: cloudy and bloody Patient Tolerated Procedure: well Complications: none
[2022-02-01 12:13] LABS: Abs Immature Grans 0.05 10^3/uL (0.0-0.06); Absolute Basophil Count 0.05 10^3/uL (0.0-0.2); Absolute Eosinophil Count 0.16 10^3/uL (0.0-0.7); Absolute Lymphocyte Count 1.27 10^3/uL (1.2-3.4); Absolute Monocyte Count 0.58 10^3/uL (0.1-0.8); Absolute Neutrophil Count 7.37 10^3/uL (1.2-6.7); Basophils % 0.5; Eosinophils % 1.7; HCT 42.7 % (40.0-50.0); HGB 14.4 g/dL (13.5-17.5); Immature Grans % 0.5; Lymphocytes % 13.4; MCH 31.3 pg (27.0-33.0); MCHC 33.7 % (32.0-36.0); MCV 93 fL (80-95); MPV 10.4 fL (8.0-11.0); Monocytes % 6.1; Neutrophils % 77.8; Platelet Count 230 10^3/uL (130-400); RDW 12.9 % (11.8-14.1); RDW-SD 43.8 fL; WBC 9.48 10^3/uL (4.4-10.8)
[2022-02-01 12:30] LABS: ESR 26 mm/hr (0-20)
[2022-02-01 12:32] LABS: ALT 20 U/L (16-63); Albumin 3.3 g/dL (3.4-5.0); Alkaline Phosphatase 87 U/L (46-116); Anion Gap 9.4 mmol/L (3-11); BUN 15 mg/dL (7-18); Bilirubin, Total 0.3 mg/dL (0.2-1.0); CO2 25.6 mmol/L (21.0-32.0); Calcium 8.4 mg/dL (8.5-10.1); Chloride 106 mmol/L (98-107); Glucose 187 mg/dL (74-106); Potassium 4.6 mmol/L (3.5-5.1); Sodium 141 mmol/L (136-145)
[2022-02-01] MEDS: Lidocaine 1% Pres-Free 5 ML VIAL (13:00)
[2022-02-01 13:12] LABS: AST 8 U/L (15-37); C-Reactive Protein 0.35 mg/dL (0.0-0.3); Total Protein 7.2 g/dL (6.4-8.2)
[2022-02-01] MEDS: CLINDAMYCIN 600 MG/50 ML BAG 100 MG IVPB (13:54)
[2022-02-01 14:16] LABS: Crystals (BF) No Crystals seen
[2022-02-01 14:17] LABS: Clarity Cloudy
[2022-02-01 14:18] LABS: Nucleated Cells 23592 uL (0)
[2022-02-01 14:19] LABS: Mononuclear Cells 6 %; Polynuclear Cells 94 %
[2022-02-01] MEDS: cefTRIAXone 1 GM VIAL IM (16:02)
[2022-02-01 16:09] VITALS: BP 140/82; PULSE 75; RESP 18; TEMP 37; O2SAT 99
[2022-02-02 16:31] LABS: Fluid Type Synovial; Protein,Total, BF 5.2 g/dL
[2022-02-03 12:46] LABS: Fluid Type Synovial; Lactate Dehydrogenase (LD), BF 2192 U/L
[2022-02-03 15:32] LABS: Specimen Source Synovial
== END 2022-02-01 16:09 | disposition home or self-care (01) ==
PROVIDERS: Emergency Provider Emergency Medicine; PCP Internal Medicine
DX: M71.121 Other infective bursitis, right elbow (principal); B95.61 Methicillin susceptible Staphylococcus aureus infection as the cause of diseases classified elsewhere
CPT/HCPCS: 20605; 36415; 80053; 85652; 87040; 87077; 96365; 99284; 81373; 83615; 84157; 85025; 86140; 87070; 87075; 87186; 87205; 87476; 89051; 89060; 99283; J0696; J3490

== ENCOUNTER 2022-02-07 09:40 | Emergency (ER) | payer MEDICARE, OTHER, SELFPAY ==
[2022-02-07 09:42] VITALS: BP 143/76; PULSE 92; RESP 16; TEMP 36.5; O2SAT 95
--- NOTE | 2022-02-07 09:51 | ED.GENADUL_ITS ---
Discharge Plan Disposition Patient Disposition: HOME Condition: Stable Discharge Details Clinical Impression: Olecranon bursitis, right elbow Primary Care Provider: Leyda Carvajal ED Provider: Angelo Garcia Home Meds and New Rx's Prescriptions: Continued tadalafil [Cialis] 20 mg tablet 20 mg PO DAILY PRN (Reason: erectile dysfunction) Qty: 30 5RF Rx Instructions: administer approximately 30min before sexual activity; do not use more than 1 dose per 24hrs sitagliptin 25 mg tablet 25 mg PO DAILY Qty: 90 0RF Label Comments: Pt stopped,bothered him,unsure if Dr. Carvajal aware yet 02/01/22 (DME) lancets [Accu-Chek Fastclix Lancet Drum] Misc See Rx Instructions .ROUTE .MEDSUPPLY Qty: 100 4RF Rx Instructions: Dx E11.9, goal A1c < 8. (DME) Accu-Chek Guide test strips Strip See Rx Instructions .ROUTE .MEDSUPPLY Qty: 200 3RF Rx Instructions: Dx E11.9, goal A1c < 8 test BID Vivian-[place] Plus C/C(PE,DM) 1 EACH tablet, effervescent 1 ea PO Q6H PRN PRN Rx Instructions: uses more often in winter for sx of cold/flu ketoconazole 120 ML shampoo 1 applic Topical Q72H Qty: 2 3RF Label Comments: Pt uses 1-2 times a week 02/01/22 celecoxib 200 mg capsule 200 mg PO DAILY PRN (Reason: pain) Qty: 90 3RF Label Comments: Pt takes 2-3 times a week 02/01/22 furosemide [Lasix] 20 mg tablet 20 mg PO DAILY Qty: 90 3RF Hold Instructions: Home Medication placed on hold at Doctor's office Label Comments: Pt states doesn't take 02/01/22 (DME) lancets Misc 1 ea Miscellaneous QID Qty: 300 1RF Rx Instructions: Test TID. Dx E11.49, goal HGB AIC LESS THAN 7 nitroglycerin [Nitrostat] 0.4 mg tablet, sublingual 0.4 mg Sublingual PRN Qty: 30 1RF Rx Instructions: Dispense one small bottle omeprazole 20 mg capsule,delayed release(DR/EC) 20 mg PO DAILY Qty: 90 3RF Label Comments: Pt has but isn't taking 02/01/22 (DME) pen needle, diabetic [BD Ultra-Fine Short Pen Needle] 31 gauge x 5/16 needle See Rx Instructions .ROUTE .MEDSUPPLY Qty: 200 3RF Rx Instructions: For E11.9 to maintain A1C< 7, BID injections Children's Chewable Vitamin 1 EACH tablet,chewable 2 ea PO BID calcium citrate-vitamin D3 1 EACH tablet 600 ea PO BID aspirin 81 mg Tablet,Delayed Release (Dr/Ec) 81 mg PO QPM melatonin 10 mg Tablet 10 mg PO HS Rx Instructions: Take when going to bed to add to previous 10mg dose for total of 20mg. melatonin 10 mg Tablet 10 mg PO QPM Rx Instructions: Take at 7pm, followed by second 10mg dose at bedtime for a total of 20mg glimepiride 4 mg tablet 4 mg PO BID levothyroxine 112 mcg tablet 224 mcg PO DAILY Rx Instructions: 2 PO DAILY; total 224 mcg daily olmesartan [Benicar] 40 mg tablet 40 mg PO QPM insulin glargine [Lantus Solostar U-100 Insulin] 100 unit/mL (3 mL) insulin pen 80 unit subcut QPM Rx Instructions: 80 units qpm based on blood sugar clindamycin HCl 300 mg capsule 300 mg PO Q6H 10 Days Qty: 40 0RF Adult 50 Plus Probiotic 4 billion cell capsule 4,000 mmu cells PO DAILY Qty: 10 0RF Rx Instructions: administer with a meal Discharge Instructions Instructions: Elbow Bursitis (ED) Additional Instructions: It would appear as though the infection is responding well to the antibiotics. Continue to cool and/or warm compresses every 2 hours for 20 minutes. Avoid direct pressure and be sure that when you are resting your elbow while resting it on something soft such as a pillow. Wear Ja wrap for compression. As I discussed with you, I personally discussed your case with Dr. Sandoval and these are his recommendations. Please follow-up on Friday in his office as already scheduled. Watch for new or worsening symptoms and return to the ER for any concerns. Medical Decision Making 71-year-old gentleman, [id number], presents to the ER for evaluation of right elbow swelling and pain. He states that he was seen in the ER 6 days ago, the elbow was drained, put on clindamycin which he is still taking. States that overall his arm is improved but he still continues to have focal swelling at the elbow. He is scheduled to see Dr. Sandoval on Friday. Clinically he appears well, nontoxic, no evidence of septic joint. When reviewing his previous medical record, he appears much improved today compared to that visit. Clinically this appears to be a localized olecranon bursitis, no signs of infection. Given Dr. Sandoval was involved in his care 6 days ago and will see him on Friday I would like to quickly consult with him. I was able to speak with Dr. Sandoval who does not recommend any draining of the bursitis today. States that it sounds as though he is overall improving which would be expected with his presentation from 6 days ago. He recommends that he continues the antibiotics, we wrapped his arm with an Ja wrap for compression, and he be sure to avoid direct compression when resting his arm on an object. He will continue to follow the patient in his office on Friday. This plan was discussed with patient. Ja wrap applied Standard discharge and return precautions were provided. Patient understands, is agreeable to this plan, and has no additional questions or concerns upon discharge. This documentation was generated using [employer] dictation system, please disregard any oddities of phrase or misspellings. Medical Records Medical records reviewed: Yes I reviewed the patient's medical records. HPI General Mode of arrival: ambulatory . Date/Time Provider Initiated Documentation: 02/07/22 09:41 . Limitations to Documentation: no limitations . Information obtained by: patient . History of Present Illness 71 year old M presents to the emergency department with the chief complaint of R elbow pain, described as moderate, with intensity rated at 4. Quality is described as aching, and is localized to the right and upper extremity. Patient reports no radiation. Patient started experiencing this week(s) (5) and it has been other (improving). Immobilization improves symptom(s), Movement worsens symptoms . Patient notes no other symptoms.. Patient did receive the following treatments prior to arrival, other (Clindamycin) Related Data Home Medications Medication Instructions Recorded Confirmed calcium citrate 315 mg-vitamin D3 600 ea PO BID 12/20/13 02/07/22 5 mcg (200 unit) tablet pediatric multivitamin (Children's 2 ea PO BID 12/20/13 02/07/22 Chewable Vitamin) [id number]-[id number]-WQ-[id number] 1 ea PO Q6H PRN PRN 09/23/17 02/07/22 2 mg-7.8 mg-10 mg-325 mg effervs tab (Vivian-[place] Plus C/C(PE,DM)) ketoconazole 2 % shampoo 1 applic topical Q72H ##2 09/23/17 02/07/22 blood sugar diagnostic (Accu-Chek #200 units 08/14/21 02/07/22 Guide test strips) lancets (Accu-Chek Fastclix Lancet #100 ea 08/14/21 02/07/22 Drum) celecoxib 200 mg capsule 200 mg PO DAILY PRN pain #90 10/31/21 02/07/22 tab-caps furosemide 20 mg tablet (Lasix) 20 mg PO DAILY #90 tab-caps 10/31/21 02/07/22 lancets #300 ea 10/31/21 02/07/22 nitroglycerin 0.4 mg sublingual 0.4 mg sublingual PRN ASCVD #30 10/31/21 02/07/22 tablet (Nitrostat) tabs omeprazole 20 mg capsule,delayed 20 mg PO DAILY #90 tab-caps 10/31/21 02/07/22 release pen needle, diabetic 31 gauge x #200 ea 10/31/21 02/07/2201/07 (BD Ultra-Fine Short Pen Needle) sitagliptin 25 mg tablet 25 mg PO DAILY #90 tabs 11/14/21 02/07/22 tadalafil 20 mg tablet (Cialis) 20 mg PO DAILY PRN erectile 11/14/21 02/07/22 dysfunction #30 tabs aspirin 81 mg tablet,delayed 81 mg PO QPM 02/01/22 02/07/22 release clindamycin HCl 300 mg capsule 300 mg PO Q6H 10 days #40 caps 02/01/22 02/07/22 glimepiride 4 mg tablet 4 mg PO BID 02/01/22 02/07/22 insulin glargine 100 unit/mL (3 80 unit subcut QPM 02/01/22 02/07/22 mL) subcutaneous pen (Lantus Solostar U-100 Insulin) lactobacillus combination no.9 4 4,000 mmu cells PO DAILY #10 caps 02/01/22 02/07/22 billion cell capsule (Adult 50 Plus Probiotic) levothyroxine 112 mcg tablet 224 mcg PO DAILY 02/01/22 02/07/22 melatonin 10 mg tablet 10 mg PO HS 02/01/22 02/07/22 melatonin 10 mg tablet 10 mg PO QPM 02/01/22 02/07/22 olmesartan 40 mg tablet (Benicar) 40 mg PO QPM 02/01/22 02/07/22 Previous Rx's Medication Instructions Recorded ketoconazole 2 % shampoo 1 applic topical Q72H ##2 09/23/17 blood sugar diagnostic (Accu-Chek #200 units 08/14/21 Guide test strips) lancets (Accu-Chek Fastclix Lancet #100 ea 08/14/21 Drum) celecoxib 200 mg capsule 200 mg PO DAILY PRN pain #90 10/31/21 tab-caps furosemide 20 mg tablet (Lasix) 20 mg PO DAILY #90 tab-caps 10/31/21 lancets #300 ea 10/31/21 nitroglycerin 0.4 mg sublingual 0.4 mg sublingual PRN ASCVD #30 10/31/21 tablet (Nitrostat) tabs omeprazole 20 mg capsule,delayed 20 mg PO DAILY #90 tab-caps 10/31/21 release pen needle, diabetic 31 gauge x #200 ea 10/31/2101/07 (BD Ultra-Fine Short Pen Needle) sitagliptin 25 mg tablet 25 mg PO DAILY #90 tabs 11/14/21 tadalafil 20 mg tablet (Cialis) 20 mg PO DAILY PRN erectile 11/14/21 dysfunction #30 tabs clindamycin HCl 300 mg capsule 300 mg PO Q6H 10 days #40 caps 02/01/22 lactobacillus combination no.9 4 4,000 mmu cells PO DAILY #10 caps 02/01/22 billion cell capsule (Adult 50 Plus Probiotic) Allergies Allergy/AdvReac Type Severity Reaction Status Date / Time Yziafyz-KFS-GwP Reductase Allergy Severe Swelling/Ed Verified 02/07/22 09:46 Inhibitor alton [Zyifkhy-Wnk-Nat Reductase Inhibitor] ciprofloxacin [From Cipro] AdvReac Unknown NUMBNESS; Verified 02/07/22 09:46 TINGLING exenatide AdvReac Unknown unknown Verified 02/07/22 09:46 General Stated Complaint: Recheck VIKY: 4 Review of Systems Constitutional Constitutional: Denies fever(s) Musculoskeletal Musculoskeletal: Reports joint swelling (posterior R elbow), Denies numbness, Denies stiffness and Denies tingling Integumentary/Breasts Skin/Breast: Reports erythema (mild) Neurologic Neurologic: Denies numbness and Denies tingling PFSH All Active Problems (Updated 02/07/22 @ 10:22 by NESS Carvajal) Septic bursitis (Acute) Olecranon bursitis, right elbow (Acute) Erectile dysfunction (Acute) BPH without obstruction/lower urinary tract symptoms (Acute) Carpal tunnel syndrome (Acute) Chronic obstructive lung disease (Acute) Peripheral venous insufficiency (Acute) Shoulder pain (Acute) Erythrocytosis (Acute) Hypogonadotropic hypogonadism (Acute) Sensorineural hearing loss of both ears (Chronic) Vitamin D deficiency (Acute 09/12/15) Unspecified sleep apnea (Acute) 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) Tubular adenoma of colon (Acute 06/17/16) Primary fibromyalgia syndrome (Acute) Obesity (Acute) Microalbuminuria due to type 2 diabetes mellitus (Acute 09/19/16) Hypothyroidism (Acute 01/31/14) Essential hypertension (Acute 09/14/13) Bariatric surgery status (Acute 08/13/13) Atherosclerosis of [place] coronary artery of [place] heart without angina pectoris (Acute) Asthma (Acute) Anxiety (Acute) Medical History Anxiety Asthma Atherosclerosis of [place] coronary artery of [place] heart without angina pectoris Diabetes mellitus type II, controlled History of bariatric surgery HTN (hypertension) Surgical History BARIATRIC SURGERY (~2013) Colonoscopy - IV Sedation (06/17/16) Rotator Cuff Repair B/L Stent placement (~2002) 1 vascular stent RCA thyroidectomy (05/07/13) Vasectomy Family History Mother No problems noted. Father Heart disease tobacco use Sister No problems noted. Sister No problems noted. Sister No problems noted. Social History Smoking/Tobacco Use Status: Never Smoking risk assessment performed?: Yes Alcohol Intake: never Drug use: Never Substance use type: does not use Household members: spouse Housing: house Number of Children: 1 number of grandchildren: 2 Communication Needs: Hard of Hearing current occupation: retired from [employer] Current gender identity: male What is your relationship status?: Panel score (0-1 are the most socially isolated patients): 1 What type of physical activity do you participate in: walking Seatbelt use: always Drive intox or ride w/intox cpr ambulance driver: No Water heater temp set <120 deg: Yes Carbon monox detector in home: Yes Do you feel safe at home: Yes Do you feel safe in your relationship?: Yes Exam Const General: cooperative, healthy appearing, comfortable and no acute distress Orientation: alert and awake [facility] Head: normal to inspection, normocephalic and atraumatic Eyes Conjunctivae: conjunctivae normal Neck Neck: normal visual inspection, trachea midline and supple Resp Effort & Inspection: normal respiratory effort and able to speak in complete sentences Cardio Rate: regular rate Rhythm: regular rhythm Skin General skin exam: no rashes or lesions noted Neuro General: patient alert, patient awake, moves all extremities and no focal motor deficits Cognition: normal cognition Speech: speech normal Gait: normal gait Motor: muscle tone normal throughout Sensory Exam: no sensory deficits noted Extrem General: full ROM and capillary refill normal Other: Right elbow with mild posterior swelling and tenderness, minimal warmth but no erythema or lymphangitic streaking. The rest of the arm is unremarkable. 5/5 strength. Normal radial pulse and capillary refill. Skin is intact. Neuro, vascular, tendon intact. Full flexion, slightly limited extension. Psych Appearance: grossly normal Mental Status: mental status grossly normal Course Vital Signs Vital signs: Vital Signs Temperature 36.5 C 02/07/22 09:42 Pulse 92 H 02/07/22 09:42 Respiratory Rate 16 02/07/22 09:42 Blood Pressure 143/76 H 02/07/22 09:42 Pulse Oximetry 95 02/07/22 09:42 Temperature 36.5 C 02/07/22 09:42 Temperature Source Tympanic 02/07/22 09:42 Pulse 92 H 02/07/22 09:42 Respiratory Rate 16 02/07/22 09:42 Respiratory Effort 02/07/22 09:46 Blood Pressure 143/76 H 02/07/22 09:42 Pulse Oximetry 95 02/07/22 09:42 Pain Level 3 02/07/22 09:42
[2022-02-07 10:28] VITALS: BP 145/78; PULSE 72; RESP 16; O2SAT 97
== END 2022-02-07 10:28 | disposition home or self-care (01) ==
PROVIDERS: Emergency Provider Physician Assistant; PCP Internal Medicine
DX: M70.21 Olecranon bursitis, right elbow (principal); E11.69 Type 2 diabetes mellitus with other specified complication; I10 Essential (primary) hypertension; Z79.4 Long term (current) use of insulin
CPT/HCPCS: 99283

== ENCOUNTER → 2022-02-11 13:18 | Outpatient (BNVA) | payer MEDICARE, OTHER, SELFPAY | PROVIDERS: PCP Internal Medicine; Referring Provider Internal Medicine; Visit Provider Student in an Organized Health Care Education/Training Program | DX: M71.121 Other infective bursitis, right elbow (principal) | CPT/HCPCS: 99213 ==

== ENCOUNTER 2022-03-29 02:02 | Outpatient (CLI) | payer MEDICARE, OTHER, SELFPAY ==
[2022-03-29] MEDS: Albuterol HFA 18 GM 200 PUFF INH IH (11:06)
[2022-03-29] MEDS: Inhaler, Assist Device 1 EACH MC (11:11)
--- NOTE | 2022-03-29 13:10 | W.PFT ---
Date of service: 03/29/22 Time of Service: 10:01 Pulmonary Function Test Result Requesting Provider Leyda Carvajal Indications: Dyspnea on exertion Interpretation Spirometry: There is no airflow limitation. There is no bronchodilator response. Lung Volumes: Normal lung volumes Diffusion Capacity: Normal diffusion, however suboptimal accuracy Airway Pressure: Normal airways resistance. Impression Normal pulmonary function testing. Note: When compared to 03/23/12, lung function has improved. Clinical Correlation therefore is recommended.
--- NOTE | 2022-04-01 15:57 | W.PFT ---
Date of service: 03/29/22 Time of Service: 10:01 Pulmonary Function Test Result Requesting Provider Leyda Carvajal Indications: Dyspnea on exertion Interpretation Spirometry: There is no airflow limitation. There is no significant bronchodilator response. Lung Volumes: Normal lung volumes. Diffusion Capacity: The diffusion is normal. Airway Pressure: Normal airways resistance. Impression Normal pulmonary function testing. Note: When compared to 03/23/12, the FEV1 and FVC are significant improved. The TLC has also improved. Clinical Correlation therefore is recommended.
== END 2022-03-29 02:03 | disposition home or self-care (01) ==
LOC: RT 02:02
PROVIDERS: PCP Internal Medicine; Visit Provider Internal Medicine
DX: R06.09 Other forms of dyspnea (principal)
CPT/HCPCS: 94060; 94726; 94729

== ENCOUNTER → 2022-04-08 00:39 | Outpatient (CLI) | payer MEDICARE, OTHER, SELFPAY ==
--- NOTE | 2022-04-08 07:15 | DI.NM_ITS ---
APPROVED REPORT Exam: Pharmacologic Patient Location: Out-Patient Room/Bed: Stress Nurse: Lisbet Erazo RN Ordering Provider:BRANDON LOMAS, Contact Number: [phone] BMI: 40.60 Baseline Rhythm: Sinus Rhythm, multifocal PVC's Indications: Dyspnea on exertion, Atherosclerosis of [place] coronary artery Medical History Medical History: HTN, Atherosclerosis of [place] coronary artery w/ angina, sleep apnea, DM II, obesit y, asthma, anxiety, peripheral venous insufficiency Cardiac Medications: ASA, Metformin, Nitro SL, Olmesartan, Tadalafil, glyburide Allergies: Statins, Cipro, Exenatide, HMG-CoA reductase inhibitor Cardiac Risk Factors: Family history, HTN, PVD, DM II, Asthma, Obesity Previous Cardiac Procedures: Stent to RCA in 2002 Pretest Chest Pain Characteristics: None Exercise History: Sedentary Physical Disabilities: Knees Lung Sounds: lung sounds clear Heart Sounds: S1/S2, regular Stress Test Details Test: Pharmacologic stress was paired with low level exercise. Reason for pharmacologic stress test: T wave inversions in multiple leads. Nuclear Acquisition: Rest Tc-99m/Stress Tc-99m 1 day Rest Isotope: Tc-99m Sestamibi. Dose: 12 Date: 04/08/2022 Injection Time: 0930 Stress Isotope: Tc-99m Sestamibi. Dose: 36 Date: 04/08/2022 Injection Time: 11:18 HR Resting HR Supine: 70 bpm Max Heart Rate (APMHR): 149 bpm Resting HR Standin bpm Target HR (85% APMHR): 126 bpm Max HR Achieved: 111 bpm % of APMHR: 74 Recovery HR: 95 bpm BP Resting BP Supine: 138/74 mmHg Resting BP Standin/76 mmHg Max BP: 154/90 mmHg Recovery BP: 1254/90 mmHg ECG Resting ECG: Sinus Rhythm, nonspecific ST-T abnormalities Ectopy: Frequent multifocal PVC's, brief and intermittent periods of bigeminy Comment: T wave inversions in V2, V3,V4 Stress ECG: Sinus Tachycardia ST Change: Nondiagnostic resting ST abnormalities Arrhythmia: Frequent multifocal PVC's, couplets Recovery ECG: Sinus Rhythm Recovery ST Change: Nondiagnostic resting ST abnormalities Recovery Arrhythmia: Frequent multifocal PVC's, couplets Clinical Stress Symptoms: Patient reports shortness of breath at rest and with exertion Angina Score: None Rate Pressure Product: [id number] Stress ECG Conclusion 1. Electrocardiogram showed right axis deviation, poor R wave progression 2. Patient underwent testing using a combination of low-level exercise and regadenoson 3. Peak heart rate achieved was 74% of predicted for age 4. The electrocardiographic portion of the test was nondiagnostic due to inadequate heart rate 5. See MPI report Stress Test Summary STAGE HR BP SpO2 Symptoms NOTES Supine 70 138/74 Standing 82 126/76 92% 1 min post Lexiscan injection 94 110/60 3 min post Lexiscan injection 109 148/76 94% 6 min post Lexiscan injection 95 154/90 96% Patient completed stress portion of the exam by doing a walking lexiscan. Ambulated for 5 minutes on the treadmill between 0.9-1.2 mph. No symptoms reported with medication administration Tolerated test well. MPI Conclusion Technically difficult study Inferior posterolateral ischemia imposed on some degree of infarction EF is 35%
[2022-04-08] MEDS: Regadenoson 0.4 MG/5 ML SYR IVP (11:27)
== END ==
PROVIDERS: PCP Internal Medicine; Visit Provider Internal Medicine
DX: I25.10 Atherosclerotic heart disease of native coronary artery without angina pectoris (principal); R06.09 Other forms of dyspnea
CPT/HCPCS: 78452; 93016; 93018; 93017; J2785

== ENCOUNTER → 2022-05-28 10:38 | Outpatient (BNVA) | payer MEDICARE, OTHER, SELFPAY | PROVIDERS: PCP Internal Medicine; Referring Provider Internal Medicine; Visit Provider Surgery | DX: Z86.010 Personal history of colon polyps (principal); Z12.11 Encounter for screening for malignant neoplasm of colon ==